=== PATIENT | male | born 1965 | race Caucasian/White ===

== ENCOUNTER 2018-09-18 12:36 | Emergency (ER) | payer BC ==
[~2018-09-18] VITALS: Ht 172.7 cm; Wt 268.2 kg
[~2018-09-18 12:36] MED LIST: AMLO10TA PO; ASPI81TA52 PO; CARV-50 PO; DOXA2TAB13 PO; LISI40TA4 PO; TOLT2TAB2 PO
[2018-09-18] MEDS ORDERED: LIDOcaine 1% w/epiNEPHrine 1:200,000 30ml vial IM ONE (13:10)
[2018-09-18] MEDS ORDERED: TETanus/Pertussis (Acell)/Diphther VAC/PF (Tdap-Adult) 0.5ml syringe IMVAC ONE (13:20)
[2018-09-18 15:11] VITALS: BP 161/84
== END 2018-09-18 15:13 | disposition home or self-care (01) ==
LOC: ER 12:37
DX: S01.112A Laceration without foreign body of left eyelid and periocular area, initial encounter (principal); Z79.82 Long term (current) use of aspirin; Z79.899 Other long term (current) drug therapy; W20.8XXA Other cause of strike by thrown, projected or falling object, initial encounter; Y93.89 Activity, other specified; Y92.89 Other specified places as the place of occurrence of the external cause; Y99.8 Other external cause status
CPT/HCPCS: 12011; 90471; 90715; 99283